=== PATIENT | female | born 1970 | race Caucasian/White ===

== ENCOUNTER 2020-11-16 10:23 | Outpatient (CLI) | payer OTHER, SELFPAY ==
--- NOTE | 2020-11-16 10:30 | MM_ITS ---
WS: [id number] BILATERAL SCREENING DIGITAL MAMMOGRAM WITH CAD HISTORY: SCREENING COMPARISON: 02/06/2019, 01/16/2019 and 10/04/2016 Bilateral CC and MLO views submitted. Computer aided detection analyzed. Breast composition: There are scattered areas of fibroglandular density. No suspicious masses, microc alcifications or architectural distortion. Bilateral asymmetries are stable. MM/[place] [id number] IMPRESSION: BI-RADS: 2-Benign FOLLOW UP: 1 Year Follow-up
== END 2020-11-16 10:24 | disposition home or self-care (01) ==
LOC: RADSHAW 10:29
PROVIDERS: PCP Family Medicine; Visit Provider Family Medicine
DX: Z12.31 Encounter for screening mammogram for malignant neoplasm of breast (principal)
CPT/HCPCS: 77067

== ENCOUNTER 2020-11-18 16:28 | Outpatient (CLI) | payer OTHER, SELFPAY ==
[2020-11-18 17:11] LABS: Add Urine Microscopic? YES; Bacteria Urine 1+ /hpf; Bilirubin Urine Neg (Negative); Blood Urine 3+ (Negative); Glucose Urine UA Norm (Normal); Ketones Urine Negative (Negative); Leukocyte Esterase Urine Negative (Negative); Nitrate Urine Negative (Negative); Protein Urine Neg (Negative); RBC Urine 15-25 /hpf (0-2); Squamous Epithelial Cell Urine 0-4 /hpf (0-5); Urine Appearance Clear (CLEAR); Urine Color Yellow (Yellow); Urobilinogen Urine 1 mg/dL (Negative); WBC Urine 15-25 /hpf (0-5); pH Urine 5 (5-7)
[2020-11-18 17:12] LABS: Add Urine Culture? Yes
== END 2020-11-18 16:29 | disposition home or self-care (01) ==
PROVIDERS: PCP Family Medicine; Visit Provider Family Medicine
DX: R30.0 Dysuria (principal)
CPT/HCPCS: 81001; 87077; 87086; 87186

== ENCOUNTER 2021-01-03 10:11 | Outpatient (CLI) | payer OTHER, SELFPAY ==
--- NOTE | 2021-01-03 10:24 | XR_ITS ---
WS: [id number] XR ankle RT min 3V* [id number] REASON FOR EXAM: R ANKLE INJURY FINDINGS: Mild soft tissue swelling around the ankle joint. The right ankle mortise is well preserved. Distal tibia is unremarkable. Small bony bodies adjacent to the tip of the distal fibula are compatib le with chronic lateral ligamentous injury. No fracture or other focal acute bony abnormality. XR/XR ankle RT min 3V* [id number] IMPRESSION: No acute bony or joint abnormality identified.
== END 2021-01-03 10:12 | disposition home or self-care (01) ==
PROVIDERS: PCP Family Medicine; Visit Provider Nurse Practitioner Family
DX: S99.911A Unspecified injury of right ankle, initial encounter (principal); X58.XXXA Exposure to other specified factors, initial encounter
CPT/HCPCS: 73610

== ENCOUNTER → 2021-08-11 12:41 | Outpatient (BNVA) | payer OTHER, SELFPAY | PROVIDERS: PCP Family Medicine; Visit Provider Orthopaedic Surgery | DX: Z01.812 Encounter for preprocedural laboratory examination (principal); Z20.822 Contact with and (suspected) exposure to COVID-19 | CPT/HCPCS: 87635 ==

== ENCOUNTER 2021-08-18 09:02 | Day surgery (SDC) | payer OTHER, SELFPAY ==
[2021-08-17 15:08] VITALS: BMI 29.2
[2021-08-18] VITALS (9 sets, daily range): BP systolic 122–158; BP diastolic 59–89; PULSE 62–92; RESP 13–18; TEMP 36.4–37.4; O2SAT 95–99
[2021-08-18] MEDS: sodium chloride 0.9% 1,000 ML 30 ML IV (09:33)
[2021-08-18 10:10] LABS: Anion Gap 15.1 (5-19); Blood Urea Nitrogen 10 mg/dL (6-20); Carbon Dioxide 25 mmol/L (22-29); Chloride 102 mmol/L (98-107); Glomerular Filtration Rate 87.9 mL/min (90-130); Glucose 88 mg/dL (65-115); Osmolality Calculated 284 mOsm/kg (285-295); Potassium 4.1 mmol/L (3.5-5.1); Sodium 138 mmol/L (136-145)
--- NOTE | 2021-08-18 10:12 | ANES.PREANE2 ---
Pre-Anesthetic Assessment Pre-Anesthetic Assessment: Height/Weight: Height 1.6 m Weight 74.843 kg Temp Pulse Resp BP Pulse Ox 97.5 F L 74 18 153/88 98 08/18/21 09:19 08/18/21 09:19 08/18/21 09:19 08/18/21 09:19 08/18/21 09:19 Preop Diagnosis: Mass right long finger Proposed Procedure: Operation Date: 08/18/21 10:40 Proposed Procedures p Foreign Body removal right long finger 32802 M79.643(Right) - Perico Dejesus MD Was Beta Gen taken within 24 hours: N/A Was Clonidine taken within 24 hours: N/A Last intake: Intake Last Liquid Date 08/17/21 Last Liquid Time 21:00 Last Solid Date 08/17/21 Last Solid Time 18:00 Social: Social History: No tobacco Exam: Pre-Anes Outpt Exam: alert, oriented x 3, clear to auscultation bilaterally and regular rate & rhythm Airway: Submandibular: WNL Cervical ROM: WNL MP: 2 History/ROS: No significant history except as noted and No significant complaints Pulmonary: Pulmonary: Asthma GI: GI: GERD Metabolic: Metabolic: Hyperlipidemia Anesthetic Plan: ASA status: 2 Anesthesia: Anesthesia Evaluation and MAC Risk of > 500 ml blood loss (7ml/kg in children): No Meds/Allergies Current Medications: Current Medications Generic Name Dose Route Start Last Admin Trade Name Freq PRN Reason Stop Dose Admin Sodium Chloride 1,000 mls @ 30 ml s/hr 08/18/21 09:30 08/18/21 09:33 Sodium Chloride 0.9% IV 08/19/21 09:29 30 mls/hr .Q24H CECIL Administration PFSH Anesthesia PFSH: Social History (Updated 07/22/21 @ 10:41 by Omari Valle LPN) Smoking and tobacco status: never smoked Alcohol intake: never Data Anesthesia CBC & Chem 7: 08/18/21 09:30 Other Labs: Laboratory Results - last 48 hr 08/18/21 09:30 Sodium 138 Potassium 4.1 Chloride 102 Carbon Dioxide 25 Anion Gap 15.1 BUN 10 Creatinine 0.7 GFR Calculation 87.9 L Glucose 88 Calculated Osmolality 284 L Calcium 9.0 Cardiac Studies: No Data to Display
--- NOTE | 2021-08-18 11:42 | W.PM.OPSUD ---
Surgery/Procedure H&P Update DATE OF PROCEDURE: August 18, 2021 DATE H&P PERFORMED: 07/22/21 H&P UPDATE INFORMATION: I have reviewed H&P completed within last 30 days PREOP DIAGNOSIS: Mass right long finger PLANNED PROCEDURE: Operation Date: 08/18/21 10:40 Proposed Procedures p Foreign Body removal right long finger 55169 M79.643(Right) - Perico Dejesus MD
--- NOTE | 2021-08-18 12:35 | PM.OP ---
Operative Report Date of procedure: August 18, 2021 Pre-op Diagnosis: Mass right long finger Post-op diagnosis: same Post-op Findings: Same Procedure Done: None finger Pathology: other Pathology: Pathology Surgeon: Perico Dejesus Anesthesia: General Estimated blood loss (mL): 2 Tourniquet time (min): 3 Findings: The patient had an approximately 4 x 6mm fibrofatty consistency mass in the volar fat at the tip of the Condition: stable Disposition: PACU Procedure: The patient was taken to the operating room and given a general anesthesia. She is prepped and draped in the supine position with the right hand exposed. A Stanislav drain was passed around the long finger and tightened with circular motions of a hemostat. A 1 cm long incision was made over the palpable mass in the long finger. Dissection was carried through the skin and subcutaneous tissue in to the volar fat pad. A solid fatty appearing of fibrous mass was removed approximately 4 x 6 mm in dimension. It readily shelled out from soft tissues. Skin is were infiltrated with approximately 2 cc of 0.5% Marcaine. Skin was closed with interrupted 4-0 Prolene. Xeroflo gauze 4 x 4's and tube gauze were applied. The patient was extubated and taken recovery in stable condition.
--- NOTE | 2021-08-18 12:46 | SUR.PHASEI ---
PT AWAKE ALERT DENIES PAIN AND NAUSEA, VSS IV PATENT, VSS MONITOR SR NO ECTOPY
--- NOTE | 2021-08-18 15:32 | ANE.PACU2 ---
Inpatient post-anesthesia follow up: Airway intact: Yes Vital signs: Temperature 98.0 F Pulse Rate 67 Respiratory Rate 18 Blood Pressure 125/73 Pulse Oximetry 95 Oxygen Delivery Me thod Room Air Oxygen Flow Rate 8 Fraction of Inspir ed Oxygen Hydration adequate: Yes Nausea and vomiting: No Pain level: 2 Mental status: Baseline
== END 2021-08-18 13:35 | disposition home or self-care (01) ==
PROVIDERS: PCP Family Medicine; Visit Provider Orthopaedic Surgery
PROC: (CPT 26115; principal; 2021-08-18 10:40)
DX: D21.11 Benign neoplasm of connective and other soft tissue of right upper limb, including shoulder (principal); J45.909 Unspecified asthma, uncomplicated; E78.5 Hyperlipidemia, unspecified; K21.9 Gastro-esophageal reflux disease without esophagitis
CPT/HCPCS: 26115; 36415; 80048; 88307; J1100; J2704; J3490; J7030

== ENCOUNTER 2022-02-24 09:20 | Outpatient (CLI) | payer OTHER, SELFPAY ==
--- NOTE | 2022-02-24 09:24 | MM_ITS ---
WS: [id number] SCREENING TOMOSYNTHESIS DIGITAL MAMMOGRAM WITH CAD HISTORY: Screening exam. COMPARISON: 11/16/2020, 01/16/2019 Bilateral CC and MLO views submitted. Computer aided detection analyzed. Breast composition: The breasts are heterogeneously dense, which may obscure small masses. No suspici ous masses, microcalcifications or architectural distortion. MM/[place] [id number] IMPRESSION: BI-RADS: 2-Benign FOLLOW UP: 1 Year Follow-up
== END 2022-02-24 09:21 | disposition home or self-care (01) ==
LOC: RAD 09:21
PROVIDERS: PCP Family Medicine; Visit Provider Family Medicine
DX: Z12.31 Encounter for screening mammogram for malignant neoplasm of breast (principal)
CPT/HCPCS: 77063; 77067

== ENCOUNTER 2022-11-10 13:55 | Outpatient (CLI) | payer OTHER, SELFPAY ==
--- NOTE | 2022-11-10 14:06 | XR_ITS ---
WS: [id number] XR lumbar spine 2-3V* [id number] REASON FOR EXAM: SCIATICA BACK PAIN/DORSALGIA FINDINGS: Relatively normal lumbar curvatures. Mild concave compression deformities throughout the lumbar spine. No focal lumbar vertebral lesion. Intervertebral disc spaces are relatively well-preserved. No spondylolysis is identified. There is significant degenerative arthropathy in the facet joints L1- S1, most severe at L3-S1. Steep oblique orientation of the L5-S1 disc space attending towards vertical. There is a significant anterolisthesis of L5 on S1 which is difficult to measure due to the orientation of the disc space. A pproximately 10 mm. XR/XR lumbar spine 2-3V* [id number] IMPRESSION: Degenerative arthropathy in the facet joints at L1-S1. Steep oblique orientatio n of the L5-S1 disc space with significant anterolisthesis of L5 on S1.
== END 2022-11-10 13:56 | disposition home or self-care (01) ==
LOC: RAD 13:58
PROVIDERS: PCP Family Medicine; Visit Provider Family Medicine
DX: M54.30 Sciatica, unspecified side (principal); M47.817 Spondylosis without myelopathy or radiculopathy, lumbosacral region
CPT/HCPCS: 72100

== ENCOUNTER 2023-08-10 08:00 | Outpatient (CLI) | payer OTHER, SELFPAY ==
--- NOTE | 2023-08-10 08:17 | MM_ITS ---
WS: [id number] BILATERAL SCREENING DIGITAL TOMOSYNTHESIS MAMMOGRAM WITH CAD HISTORY: SCREENING COMPARISON: 02/24/2022 and 11/30/2017, 01/16/2019 Bilateral CC and MLO views with tomosynthesis and synthetic mammography submitted. Computer aided det ection analyzed. Breast composition: The breasts are heterogeneously dense, which may obscure small masses. No suspici ous masses, microcalcifications or architectural distortion. Asymmetries are stable within each breas t. IMPRESSION: MM/[place] [id number] BI-RADS: 2-Benign FOLLOW UP: 1 Year Follow-up
== END 2023-08-10 08:01 | disposition home or self-care (01) ==
LOC: RAD 08:04
PROVIDERS: PCP Family Medicine; Visit Provider Family Medicine
DX: Z12.31 Encounter for screening mammogram for malignant neoplasm of breast (principal)
CPT/HCPCS: 77063; 77067

== ENCOUNTER → 2024-03-06 07:10 | Outpatient (BNVA) | payer OTHER, SELFPAY | PROVIDERS: PCP Family Medicine; Visit Provider Podiatrist Foot & Ankle Surgery | DX: M25.872 Other specified joint disorders, left ankle and foot | CPT/HCPCS: 73630 ==

== ENCOUNTER 2024-08-22 07:47 | Outpatient (CLI) | payer OTHER, SELFPAY ==
--- NOTE | 2024-08-22 07:55 | MM_ITS ---
WS: [id number] Bilateral screening 3D tomosynthesis digital mammogram, 08/22/2024 8:00 AM Clinical Data: SCREENING Comparison: 08/10/2023, 02/24/2022, 11/16/2020, 02/06/2019, 01/16/2019, 11/30/2017, 10/04/2016, 09/20/2015, 08/03/2014, 06/26/2013, 03/20/2012, 02/07/2011, 06/21/2010, 12/31/2008 Findings: No spiculated masses or clustered calcifications are seen. There are no secondary signs of carcinoma . MM/MM scr BI tomosynthesis [id number] Impression: Negative bilateral mammogram unchanged. Recommend annual screening mammograms. BIRADS: 1 - Negative FOLLOW UP: 1 Year Follow-up DENSITY: The breasts are heterogeneously dense, which may obscure small masses. The CAD order checker packer processer was used
== END 2024-08-22 07:48 | disposition home or self-care (01) ==
LOC: RAD 07:48
PROVIDERS: PCP Family Medicine; Visit Provider Family Medicine
DX: Z12.31 Encounter for screening mammogram for malignant neoplasm of breast (principal)
CPT/HCPCS: 77063; 77067

== ENCOUNTER → 2025-04-20 14:09 | Outpatient (BNVA) | payer OTHER, BC, SELFPAY | PROVIDERS: PCP Family Medicine; Visit Provider Family Medicine | DX: D64.9 Anemia, unspecified (principal); E78.00 Pure hypercholesterolemia, unspecified; E16.2 Hypoglycemia, unspecified; R53.83 Other fatigue | CPT/HCPCS: 80053; 80061; 82306; 82607; 82728; 83036; 83540; 84443; 85025 ==

== ENCOUNTER 2025-06-11 07:24 | Outpatient (CLI) | payer OTHER, SELFPAY ==
[2025-06-11 07:58] LABS: Alanine Aminotransferase 24 U/L (0-33); Albumin Level 4.2 g/dL (3.5-5.2); Alkaline Phosphatase 139 U/L (35-105); Anion Gap 15.6 (5-19); Aspartate Amino Transferase 27 U/L (0-32); Blood Urea Nitrogen 11 mg/dL (6-20); Calcium 9.2 mg/dL (8.5-10.5); Carbon Dioxide 26 mmol/L (22-29); Chloride 101 mmol/L (98-107); Globulin 2.8 g/dL (1.3-4.6); Glucose 94 mg/dL (65-115); Osmolality Calculated 285 mOsm/kg (285-295); Potassium 4.6 mmol/L (3.5-5.1); Sodium 138 mmol/L (136-145); Total Protein 7.0 g/dL (6.6-8.7)
== END 2025-06-11 07:25 | disposition home or self-care (01) ==
PROVIDERS: PCP Family Medicine; Visit Provider Family Medicine
DX: R79.89 Other specified abnormal findings of blood chemistry (principal)
CPT/HCPCS: 36415; 80053

== ENCOUNTER → 2025-06-15 09:23 | Outpatient (BNVA) | payer OTHER, SELFPAY | PROVIDERS: PCP Family Medicine; Visit Provider Nurse Practitioner | DX: M16.0 Bilateral primary osteoarthritis of hip (principal); M70.61 Trochanteric bursitis, right hip; M70.62 Trochanteric bursitis, left hip | CPT/HCPCS: 73523 ==

== ENCOUNTER 2025-07-15 17:04 | Outpatient (CLI) | payer OTHER, SELFPAY | END 2025-07-15 17:05 | disposition home or self-care (01) | PROVIDERS: PCP Family Medicine; Visit Provider Family Medicine | DX: R79.89 Other specified abnormal findings of blood chemistry (principal) | CPT/HCPCS: 36415; 82306 ==

== ENCOUNTER 2025-08-24 07:50 | Outpatient (CLI) | payer OTHER, SELFPAY ==
--- NOTE | 2025-08-24 | MM_ITS ---
WS: [id number] SCREENING DIGITAL BREAST TOMOSYNTHESIS MAMMOGRAM WITH CAD HISTORY: ANNUAL SCREENING COMPARISON: 08/22/2024, 08/10/2023, 02/24/2022 Bilateral CC and MLO with tomosynthesis and synthetic mammography submitted. Computer aided detection analyzed. Breast composition: The breasts are heterogeneously dense, which may obscure small masses. Focal asymmetry anterior RIGHT breast measures 9 x 6 mm. New since the prior study. Not definitely visualized on the lateral projection. LEFT breast is negative for any change. MM/MM scr BI tomosynthesis [id number] IMPRESSION: BI-RADS: 0 - Incomplete: Need additional imaging evaluation FOLLOW UP: Need Additional Imaging RIGHT breast: Spot compression views (CC and MLO). True ML. Ultrasound to follo w if abnormality persists.
== END 2025-08-24 07:51 | disposition home or self-care (01) ==
LOC: RAD 07:51
PROVIDERS: PCP Family Medicine; Visit Provider Family Medicine
DX: Z12.31 Encounter for screening mammogram for malignant neoplasm of breast (principal); R92.333 Mammographic heterogeneous density, bilateral breasts; N64.89 Other specified disorders of breast
CPT/HCPCS: 77063; 77067

== ENCOUNTER 2025-09-08 07:38 | Outpatient (CLI) | payer OTHER, SELFPAY ==
--- NOTE | 2025-09-08 07:47 | US_ITS ---
WS: [id number] ADDITIONAL VIEWS RIGHT MAMMOGRAM WITH DIGITAL BREAST TOMOSYNTHESIS. RIGHT BREAST ULTRASOUND HISTORY: birad 0, Focal asymmetry anterior RIGHT breast COMPARISON: 08/24/2025, 08/22/2024, 08/10/2023 RIGHT MAMMOGRAM: Spot compression views and true ML with digital breast tomosynthesis and SM. Breast composition: The breasts are heterogeneously dense, which may obscure small masses. Asymmetry nearly completely resolves posterior to the nipple. There is still some very mild asymmetry central to the nipple for which ultrasound will be performed. RIGHT BREAST ULTRASOUND 2-D and color Doppler imaging submitted. Echogenic thick wall hypoechoic mass in the RIGHT retroareolar region measures 0.5 x 0.3 x 0.7 cm. There is no increased vascularity within this collection. There is an additional more cystic structure retroareolar also measuring 0.9 x 0.3 x 0.7 cm. No increased vascularity. This collection does have a tail which does appear to be extending towards the nipple suggesting it may be within the duct. US/US breast RT limited* [id number] IMPRESSION: BI-RADS: 4 - Suspicious Finding - Biopsy Should Be Considered FOLLOW UP: Biopsy Recommended Ultrasound-guided biopsy recommended of the thick wall mass labeled retroareola r. This may be some inspissated secretions within the duct. Biopsy should be ob tained to exclude malignancy. There is an additional ovoid hypoechoic nodule wh ich appears more benign also retroareolar. Biopsy is only recommended of the th ick walled mass.
--- NOTE | 2025-09-08 08:00 | MM_ITS ---
WS: [id number] ADDITIONAL VIEWS RIGHT MAMMOGRAM WITH DIGITAL BREAST TOMOSYNTHESIS. RIGHT BREAST ULTRASOUND HISTORY: birad 0, Focal asymmetry anterior RIGHT breast COMPARISON: 08/24/2025, 08/22/2024, 08/10/2023 RIGHT MAMMOGRAM: Spot compression views and true ML with digital breast tomosynthesis and SM. Breast composition: The breasts are heterogeneously dense, which may obscure small masses. Asymmetry nearly completely resolves posterior to the nipple. There is still some very mild asymmetry central to the nipple for which ultrasound will be performed. RIGHT BREAST ULTRASOUND 2-D and color Doppler imaging submitted. Echogenic thick wall hypoechoic mass in the RIGHT retroareolar region measures 0.5 x 0.3 x 0.7 cm. There is no increased vascularity within this collection. There is an additional more cystic structure retroareolar also measuring 0.9 x 0.3 x 0.7 cm. No increased vascularity. This collection does have a tail which does appear to be extending towards the nipple suggesting it may be within the duct. MM/MM diag RT tomosynthesis [id number] IMPRESSION: BI-RADS: 4 - Suspicious Finding - Biopsy Should Be Considered FOLLOW UP: Biopsy Recommended Ultrasound-guided biopsy recommended of the thick wall mass labeled retroareola r. This may be some inspissated secretions within the duct. Biopsy should be ob tained to exclude malignancy. There is an additional ovoid hypoechoic nodule wh ich appears more benign also retroareolar. Biopsy is only recommended of the th ick walled mass.
== END 2025-09-08 07:39 | disposition home or self-care (01) ==
LOC: RAD 07:39
PROVIDERS: PCP Family Medicine; Visit Provider Family Medicine
DX: R92.8 Other abnormal and inconclusive findings on diagnostic imaging of breast (principal); R92.331 Mammographic heterogeneous density, right breast; N64.89 Other specified disorders of breast; N63.41 Unspecified lump in right breast, subareolar
CPT/HCPCS: 76642; 77061; G0279

== ENCOUNTER 2025-09-30 10:31 | Outpatient (CLI) | payer OTHER, SELFPAY | END 2025-09-30 10:32 | disposition home or self-care (01) | LOC: RAD 10:35 | PROVIDERS: PCP Family Medicine; Visit Provider Family Medicine | DX: N63.41 Unspecified lump in right breast, subareolar (principal); R92.0 Mammographic microcalcification found on diagnostic imaging of breast | CPT/HCPCS: 19083; 88305 ==